=== PATIENT | male | born 1955 | race Two or more races ===

== ENCOUNTER 2018-11-22 12:59 | Emergency (ER) | payer OTHER ==
[~2018-11-22] VITALS: Ht 165.1 cm; Wt 73.9 kg
--- NOTE | 2018-11-22 13:00 | NUR ---
blood drawm and sent to lab.
--- NOTE | 2018-11-22 13:00 | NUR ---
Patient bib ra860 with c/o of right hip pain. patient states he fell off 3ft ladder.No SOB, chest rises and falls equally. NAD noted. awaiting MD further Eval. will continue to monitor patient.
[2018-11-22] MEDS ORDERED: ONDANSETRON HCL/PF 4 MG/2 ML VIAL ONE (13:10)
--- NOTE | 2018-11-22 13:10 | NUR ---
SEEN AND EXAMINED BY .
[2018-11-22] MEDS ORDERED: MORPHINE SULFATE INJ 4 MG/ML DISP.SYRIN ONE ×3 (13:11→14:17)
--- NOTE | 2018-11-22 13:15 | NUR ---
[employer] APPRENTICE AT BEDSIDE FOR XRAY.
[2018-11-22 13:17] LABS: BASOPHILS % (AUTO) 0.5 % (0.0-2.0); EOSINOPHILS % (AUTO) 1.4 % (0.0-6.0); HEMATOCRIT 43 % (39-51); HEMOGLOBIN 14.5 g/dL (13.5-17.5); LYMPHOCYTES % (AUTO) 28.2 % (20.0-44.0); MEAN CORPUSCULAR HGB CONC 33 g/dl (31.0-36.0); MEAN CORPUSCULAR VOLUME 93 fL (80-96); MONOCYTES # (AUTO) 0.6 /CMM (0.1-1.30); NEUTROPHILS # (AUTO) 4.3 /CMM (1.8-8.9); NEUTROPHILS % (AUTO) 61.9 % (43.0-81.0); PLATELET COUNT (AUTO) 191 /CMM (150-450); RED BLOOD CELL COUNT(AUTO) 4.65 MIL/uL (4.5-6.0); WHITE BLOOD COUNT (AUTO) 6.9 K/uL (4.3-11.0)
[2018-11-22 13:29] LABS: CALCIUM, SERUM 9.8 mg/dL (8.5-10.1); CREATININE 1.1 mg/dL (0.6-1.3); POTASSIUM 3.7 mmol/L (3.5-5.1)
[2018-11-22] MEDS ORDERED: ONDANSETRON HCL/PF 4 MG/2 ML VIAL IVP ONE (13:30)
[2018-11-22] MEDS ORDERED: IV NS 0.9% 1,000 ML BAG IV ONE (13:30)
[2018-11-22] MEDS ORDERED: MORPHINE SULFATE INJ 2 MG/ML DISP.SYRIN IV ONE ×3 (13:30→14:30)
[2018-11-22 13:34] LABS: ALBUMIN 3.9 g/dL (3.4-5.0); BILIRUBIN,DIRECT 0.1 mg/dL (0.0-0.2); BILIRUBIN,TOTAL 0.5 mg/dL (0.2-1.0); TOTAL PROTEIN, SERUM 7.6 g/dL (6.4-8.2)
--- NOTE | 2018-11-22 13:57 | NUR ---
PT WHEELED TO CT SCAN VIA [employer].
[2018-11-22] MEDS ORDERED: CT SWABBABLE VALVE TRANS SET 1 EA INFUS.SET MC ONE (14:08)
[2018-11-22] MEDS ORDERED: IV NS 0.9% 250 ML IV ONE (14:08)
[2018-11-22] MEDS ORDERED: IOHEXOL-300 100 ML VIAL IV ONE (14:08)
--- NOTE | 2018-11-22 14:45 | NUR ---
SPOKE W/ LELIA HERNANDEZ REGARDING PATIENT'S ADMITTING TO [facility] FLOOR. HE WILL FOLLOW UP W/ REHANA TO PROVIDE AUTHORIZATION.
[2018-11-22] MEDS ORDERED: GLIP10TA11 PO (14:49)
[2018-11-22] MEDS ORDERED: METF-442 PO (14:49)
[2018-11-22] MEDS ORDERED: SITA50TA PO (14:49)
--- NOTE | 2018-11-22 15:03 | NUR ---
PAGED [employer].
--- NOTE | 2018-11-22 15:03 | NUR ---
PAGED [facility].
--- NOTE | 2018-11-22 15:06 | NUR ---
CALLED NURSING SUP. FOR MS BED
--- NOTE | 2018-11-22 15:19 | NUR ---
AT BEDSIDE FOR EVAL.
[2018-11-22] MEDS ORDERED: IV NS 0.9% 1,000 ML IV PRN (15:27)
[2018-11-22] MEDS ORDERED: HYDROCODONE/APAP 5/325MG 1 EACH TABLET PO PRN (15:30)
[2018-11-22] MEDS ORDERED: MAGNESIUM HYDROXIDE 30 ML UDC PO PRN (15:30)
[2018-11-22] MEDS ORDERED: ONDANSETRON HCL/PF 4 MG/2 ML VIAL IVP PRN (15:30)
[2018-11-22] MEDS ORDERED: *INSULIN REGULAR(HUMULIN R)HUM 100 UNIT/ML VIAL SQ PRN (15:30)
[2018-11-22] MEDS ORDERED: ACETAMINOPHEN 325 MG TABLET PO PRN (15:30)
[2018-11-22] MEDS ORDERED: MAG HYDROX/AL HYDROX/SIMETH 30 ML UDC PO PRN (15:30)
[2018-11-22] MEDS ORDERED: INSULIN REGULAR, HUMAN 100 UNIT/ML 3 ML VIAL SQ PRN (15:30)
[2018-11-22] MEDS ORDERED: DEXTROSE 50%-WATER 50 ML DISP.SYRIN IV PRN (15:30)
[2018-11-22] MEDS ORDERED: HYDROMORPHONE INJ 2 MG/ML DISP.SYRIN IV PRN (15:30)
[2018-11-22] MEDS ORDERED: Z GUARD REMEDY 2 OZ OINT TP PRN (15:30)
--- NOTE | 2018-11-22 15:40 | NUR ---
CHIDI DUNN AT BEDSIDE FOR EVAL.
--- NOTE | 2018-11-22 15:58 | NUR ---
CALLED [facility], SPOKE WITH ILYA, PRESENTED PT, TRANSFERRED CALL TO , FAXED PT PACKET TO ILYA AT [phone].
--- NOTE | 2018-11-22 16:10 | NUR ---
RECEIVED CALL FROM ILYA WITH [facility], PT IS ACCEPTED TO [facility] ER BY . NUMBER TO GIVE REPORT IS [phone]. REFERENCE NUMBER [id number].
--- NOTE | 2018-11-22 16:28 | NUR ---
CALLED [facility] FOR REPORT PLACE ON A HOLD AND NO ANSWER.
--- NOTE | 2018-11-22 16:34 | NUR ---
REPORT GIVEN TO JEAN-PIERRE VERA OF [facility] FOR DON.
--- NOTE | 2018-11-22 16:39 | NUR ---
CALLED [facility] FOR TRANSPORT TO [facility] [place], [address] , TRIP #[id number]
[2018-11-22] MEDS ORDERED: BLOOD SUGAR DIAGNOSTIC 1 EACH STRIP VI SCH (17:30)
--- NOTE | 2018-11-22 17:32 | NUR ---
GINGER CHAN 30 MINS.
--- NOTE | 2018-11-22 18:06 | NUR ---
REPORT GIVEN TO EMT FOR PT TRANSFER TO [facility].
[2018-11-22 18:07] VITALS: BP 138/79
== END 2018-11-22 18:09 | disposition short-term general hospital (02) ==
LOC: ER 13:09
DX: S32.421A Displaced fracture of posterior wall of right acetabulum, initial encounter for closed fracture (principal); S32.591A Other specified fracture of right pubis, initial encounter for closed fracture; E11.9 Type 2 diabetes mellitus without complications; W17.89XA Other fall from one level to another, initial encounter; Y93.89 Activity, other specified; Y92.89 Other specified places as the place of occurrence of the external cause; Y99.8 Other external cause status
CPT/HCPCS: 36415; 71045; 73502; 74178; 80048; 80076; 85025; 85730; 86850; 87081; 96374; 96375; 96376; 99285; J1815; J2270 ×3; J2405; J7030; J7050; Q9967